=== PATIENT | female | born 1965 | race Hispanic/Latino ===

== ENCOUNTER 2017-07-25 14:45 | Emergency (ER) | payer OTHER ==
[~2017-07-25 14:45] MED LIST: Sodium Chloride 0.9% 1,000 ML BAG ONE; Sodium Chloride 0.9% 100 ML BAG ONE
--- NOTE | 2017-07-25 15:36 | RAD ---
PA AND LATERAL CHEST: Date: 07/25/17 HISTORY: Cough. COMPARISON: 01/22/14. FINDINGS: Cardiac silhouette and pulmonary vasculature within normal limits. Lungs are clear. There has been n o interval change when compared to the prior exam. IMPRESSION: No acute cardiopulmonary process. POS: [facility]
[2017-07-25] MEDS ORDERED: Albuterol Sulfate 2.5 mg/0.5 ml Neb ONE (16:00)
[2017-07-25] MEDS ORDERED: Acetaminophen/Codeine 30-300mg Tablet ONE (16:22)
[2017-07-25 16:40] LABS: Eosinophils 1 % (0-10); Hemoglobin 14.4 g/dL (12.0-16.0); Lymphocytes 17 % (21-51); MDiff Complete? YES; Mean Corpuscular HGB CONC 34.7 g/dL (32.0-36.0); Mean Corpuscular Hemoglobin 31.8 pg (27.0-31.0); Mean Corpuscular Volume 91.7 fl (81.0-99.0); Mean Platelet Volume 7.3 fL (7.4-10.4); Monocytes 6 % (0-10); Neutrophil 76 % (42-75); PLT Morphology Comment Appears Adequate; Platelet Count 213 thou/uL (130-400); RBC Distribution Width 12.5 % (11.5-14.5); Red Blood Cell (RBC) Count 4.51 mill/uL (4.20-5.40); White Blood Cell (WBC) Count 14.6 thou/uL (4.8-10.8)
[2017-07-25 16:46] LABS: ALT (SGPT) 43 U/L (8-55); AST (SGOT) 33 U/L (5-34); Albumin 3.9 g/dL (3.5-5.0); Alkaline Phosphatase 118 U/L (40-150); Anion Gap 20 mmol/L (10-20); BUN (Urea Nitrogen) 12 mg/dL (9.8-20.1); Bilirubin, Total 0.4 mg/dL (0.2-1.2); Calc. Creatinine Clearance 0 mL/min (70-130); Calcium 9.2 mg/dL (7.8-10.44); Carbon Dioxide 17 mmol/L (22-29); Chloride 101 mmol/L (98-107); Estimated GFR-MDRD 73; Glucose 254 mg/dL (70-105); Protein, Total 7.9 g/dL (6.0-8.3); Sodium 134 mmol/L (136-145)
[2017-07-25] MEDS ORDERED: Piperacillin/Tazobactam 3.375 GM VIAL ONE (17:04)
[2017-07-25 17:13] LABS: Bilirubin Negative (Negative); Blood, Urine Trace (Negative); Clarity Cloudy (Clear); Glucose, Urine (Dipstick) 500 mg/dL (Negative); Leukocyte Small (Negative); Nitrite Positive (Negative); Protein, Urine (Dipstick) 30 mg/dL (Neg-Trace); Urobilinogen 0.2 mg/dL (0.2-1.0)
[2017-07-25] MEDS ORDERED: Ondansetron HCl/PF 4 MG/2 ML Vial ONE (17:32)
[2017-07-25 17:36] LABS: Bacteria/HPF 4+ HPF (None Seen)
[2017-07-25] MEDS ORDERED: Fentanyl 100 MCG/2 ML VIAL ONE (17:58)
--- NOTE | 2017-07-25 19:46 | CT ---
CT OF CHEST PERFORMED WITHOUT CONTRAST ENHANCEMENT: 07/25/17 HISTORY: Cough. No IV access could be obtained for this exam. There is some ground glass opacities in both lung finnegan with predominantly upper lobe changes. Ther e is not a confluent pneumonic infiltrate but these changes would suggest probable pneumonitis type changes. The diffuse nature would suggest possibility of viral type process. No significant mediastinal or hilar lymphadenopathy seen. There are fatty changes of the liver. An upper pole cortical based calcification is seen within the left kidney. Cortical scarring is seen. No signs of obstruction of the visualized portions of the le ft kidney. IMPRESSION: 1. Patchy ground glass opacities in both lung finnegan, although is slightly more central in dist ribution. I would favor this representing more of an infectious process rather than pulmonary edema. 2. Fatty changes of the liver. POS: [facility]
== END 2017-07-25 18:28 | disposition short-term general hospital (02) ==
LOC: MADERS 14:45
DX: J20.9 Acute bronchitis, unspecified (principal); N39.0 Urinary tract infection, site not specified; E66.9 Obesity, unspecified; E78.5 Hyperlipidemia, unspecified; I10 Essential (primary) hypertension; K21.9 Gastro-esophageal reflux disease without esophagitis; F41.9 Anxiety disorder, unspecified; F32.9 Major depressive disorder, single episode, unspecified; F17.210 Nicotine dependence, cigarettes, uncomplicated
CPT/HCPCS: 36415; 36416; 71020; 71250; 80053; 81003; 81015; 83605; 85025; 87040; 87070; 87205; 96361; 96365; 96375; J2405; J2543; J3010; J7050; J7611; J7620

== ENCOUNTER 2017-12-11 09:53 | Outpatient (CLI) | payer MEDICARE, OTHER ==
--- NOTE | 2017-12-11 11:45 | RAD ---
LUMBAR SPINE THREE VIEWS: History: Low back pain. FINDINGS/IMPRESSION: Comparison is made with exam of 03-26-13. Degenerative changes are seen in the lumbar spine. No fracture or bony destruction is noted. There is minimal anterolisthesis of L4 over L5 vertebral bodies. POS: [facility]
--- NOTE | 2017-12-11 11:46 | RAD ---
CERVICAL SPINE THREE VIEWS: History: Chronic pain in the neck. FINDINGS: Degenerative changes are present in the lower cervical spine. No fracture, subluxation, or bony destr uction is identified. IMPRESSION: Cervical spondylosis. POS: [facility]
== END 2017-12-11 09:54 | disposition home or self-care (01) ==
LOC: MADRAD 09:53
DX: M54.5 Low back pain (principal); M54.2 Cervicalgia; M47.892 Other spondylosis, cervical region; M47.896 Other spondylosis, lumbar region
CPT/HCPCS: 72040; 72100

== ENCOUNTER 2018-01-19 09:57 | Emergency (ER) | payer MEDICARE, MEDICAID | END 2018-01-19 11:00 | disposition home or self-care (01) | LOC: MADERS 09:57 | DX: M79.672 Pain in left foot (principal); M79.671 Pain in right foot; E11.9 Type 2 diabetes mellitus without complications; E78.5 Hyperlipidemia, unspecified; F32.9 Major depressive disorder, single episode, unspecified; F41.9 Anxiety disorder, unspecified; F17.210 Nicotine dependence, cigarettes, uncomplicated; I10 Essential (primary) hypertension; K21.9 Gastro-esophageal reflux disease without esophagitis; Z87.442 Personal history of urinary calculi; Z79.4 Long term (current) use of insulin; Z79.899 Other long term (current) drug therapy | CPT/HCPCS: 99283 ==

== ENCOUNTER 2018-07-17 23:37 | Emergency (ER) | payer MEDICARE, OTHER, MEDICAID ==
[2018-07-18] MEDS ORDERED: Acetaminophen 500 MG TAB ONE (00:15)
--- NOTE | 2018-07-18 08:59 | RAD ---
RIGHT TOES 3 VIEWS: Date: 07/18/18 HISTORY: 53-year-old female with history of injury, with pain, particularly in the second toe. FINDINGS: Somewhat obliquely oriented chip-type fractures off the medial aspect of the base of the second and t hird proximal phalanges is noted. Minimal generalized degenerative changes. IMPRESSION: Essentially nondisplaced chip-type fractures off the medial base of the proximal phalanges of the sec ond and third toes. POS: [facility]
== END 2018-07-18 01:12 | disposition home or self-care (01) ==
LOC: MADERS 23:37
DX: S92.514A Nondisplaced fracture of proximal phalanx of right lesser toe(s), initial encounter for closed fracture (principal); E11.9 Type 2 diabetes mellitus without complications; I10 Essential (primary) hypertension; E78.5 Hyperlipidemia, unspecified; J44.9 Chronic obstructive pulmonary disease, unspecified; F17.210 Nicotine dependence, cigarettes, uncomplicated; Z87.442 Personal history of urinary calculi; Z79.4 Long term (current) use of insulin; Z79.899 Other long term (current) drug therapy; W19.XXXA Unspecified fall, initial encounter

== ENCOUNTER 2018-09-15 07:17 | Emergency (ER) | payer MEDICARE, OTHER, MEDICAID ==
[2018-09-15] MEDS ORDERED: predniSONE 20 MG TAB ONE (07:56)
[2018-09-15] MEDS ORDERED: HYDROcodone/Acetaminophen 10/325 mg Tablet ONE (08:02)
== END 2018-09-15 08:12 | disposition home or self-care (01) ==
LOC: MADERS 07:17
DX: M54.41 Lumbago with sciatica, right side (principal); E11.9 Type 2 diabetes mellitus without complications; Z79.4 Long term (current) use of insulin; E78.5 Hyperlipidemia, unspecified; I10 Essential (primary) hypertension; K21.9 Gastro-esophageal reflux disease without esophagitis; J44.9 Chronic obstructive pulmonary disease, unspecified; F41.9 Anxiety disorder, unspecified; F32.9 Major depressive disorder, single episode, unspecified; F17.210 Nicotine dependence, cigarettes, uncomplicated; Z79.899 Other long term (current) drug therapy; Z79.82 Long term (current) use of aspirin
CPT/HCPCS: 99283; J7506

== ENCOUNTER 2019-01-28 18:03 | Emergency (ER) | payer MEDICARE, OTHER ==
[~2019-01-28 18:03] MED LIST changes: +Iopamidol 370 76% 200 ML VIAL ONE; -Sodium Chloride 0.9% 100 ML BAG ONE
[2019-01-28] MEDS ORDERED: Acetaminophen 500 MG TAB ONE (18:40)
[2019-01-28 18:41] LABS: #Basophils 0.1 thou/uL (0.0-0.2); #Eosinphils 0.1 thou/uL (0.0-0.7); #Lymphocytes 2.8 thou/uL (1.20-3.40); #Monocytes 0.6 thou/uL (0.11-0.59); #Neutrophils 5.5 thou/uL (1.40-6.50); %Basophils 0.9 % (0.0-1.0); %Eosinophils 1.4 % (0.0-10.0); %Monocytes 6.9 % (0.0-10.0); %Neutrophils 59.7 % (42.0-75.0); Hemoglobin 13.1 g/dL (12.0-16.0); Mean Corpuscular HGB CONC 33.1 g/dL (32.0-36.0); Mean Corpuscular Hemoglobin 29.6 pg (27.0-31.0); Mean Corpuscular Volume 89.5 fL (78.0-98.0); Mean Platelet Volume 7.3 fL (7.4-10.4); Platelet Count 208 thou/uL (130-400); RBC Distribution Width 12.8 % (11.5-14.5); Red Blood Cell (RBC) Count 4.42 mill/uL (4.20-5.40); White Blood Cell (WBC) Count 9.2 thou/uL (4.8-10.8)
--- NOTE | 2019-01-28 18:43 | RAD ---
Portable frontal chest radiograph: 01/28/2019 COMPARISON: 01/22/2014 HISTORY: Chest pain FINDINGS: Mild increased linear interstitial density with no focal consolidation or alveolar edema. N o pneumothorax or pleural effusion. Heart and mediastinal contours appear within normal limits. IMPRESSION: No acute findings.
[2019-01-28 19:00] LABS: ALT (SGPT) 18 U/L (8-55); AST (SGOT) 14 U/L (5-34); Alkaline Phosphatase 132 U/L (40-150); Anion Gap 17 mmol/L (10-20); BUN (Urea Nitrogen) 16 mg/dL (9.8-20.1); Bilirubin, Total 0.4 mg/dL (0.2-1.2); CK (CPK) 62 U/L (29-168); Calc. Creatinine Clearance 0 mL/min (70-130); Calcium 9.4 mg/dL (7.8-10.44); Carbon Dioxide 20 mmol/L (22-29); Chloride 103 mmol/L (98-107); Estimated GFR-MDRD 72; Globulin 3.2 g/dL (2.4-3.5); Glucose 137 mg/dL (70-105); Lipase 35 U/L (8-78); Potassium 4.2 mmol/L (3.5-5.1); Protein, Total 7.2 g/dL (6.0-8.3); Sodium 136 mmol/L (136-145)
--- NOTE | 2019-01-28 20:27 | CT ---
CTA OF THE THORAX UTILIZING IV CONTRAST PE PROTOCOL AND 3D REFORMATTED IMAGING 01/28/19 INDICATION: Chest pain with concern for PE. COMPARISON: Prior CT of the abdomen and pelvis without contrast dated 07/27/12. FINDINGS: No central or segmental pulmonary embolus is evident. No air space consolidation, pleural effusion, or pneumothorax is demonstrated. No enlarged lymph node s are evident. There is a stable 2.2 cm left adrenal adenoma. There is stable pneumobilia within the left hepatic lo be. No acute osseous abnormality is evident. No acute osseous abnormality is evident. IMPRESSION: 1. No central or segmental pulmonary embolus. 2. Stable left adrenal adenoma. 3. Stable mild pneumobilia within the left hepatic lobe. POS: [facility]
== END 2019-01-28 22:20 | disposition home or self-care (01) ==
LOC: MADERS 18:03
DX: R07.2 Precordial pain (principal); K04.7 Periapical abscess without sinus; K02.9 Dental caries, unspecified; E11.9 Type 2 diabetes mellitus without complications; E78.5 Hyperlipidemia, unspecified; I10 Essential (primary) hypertension; K21.9 Gastro-esophageal reflux disease without esophagitis; F17.210 Nicotine dependence, cigarettes, uncomplicated; Z79.899 Other long term (current) drug therapy; Z79.82 Long term (current) use of aspirin; Z79.51 Long term (current) use of inhaled steroids
CPT/HCPCS: 36415; 71045; 71275; 80053; 82550; 83690; 84484; 85025; 93005; 94760; 96360; J7050

== ENCOUNTER 2019-02-02 12:04 | Emergency (ER) | payer MEDICARE, OTHER | END 2019-02-02 12:30 | disposition home or self-care (01) | LOC: MADERS 12:04 | DX: K59.00 Constipation, unspecified (principal); I10 Essential (primary) hypertension; E11.9 Type 2 diabetes mellitus without complications; E78.5 Hyperlipidemia, unspecified; K21.9 Gastro-esophageal reflux disease without esophagitis; F17.210 Nicotine dependence, cigarettes, uncomplicated; F41.9 Anxiety disorder, unspecified; F32.9 Major depressive disorder, single episode, unspecified; Z79.4 Long term (current) use of insulin; Z87.442 Personal history of urinary calculi; Z79.899 Other long term (current) drug therapy; Z79.82 Long term (current) use of aspirin ==

== ENCOUNTER 2019-02-02 14:10 | Emergency (ER) | payer MEDICARE, OTHER ==
--- NOTE | 2019-02-02 15:34 | RAD ---
ACUTE ABDOMINAL SERIES 02/02/19 PROVIDED CLINICAL HISTORY: Constipation. FINDINGS: Comparison chest radiograph 01/28/19. The cardiac and mediastinal silhouette is within normal limits. No focal consolidation, pleural fluid or pneumothorax apparent. Supine and upright abdominal radiographs demonstrate a nonspecific bowel gas pattern. There is no raymond dence for pneumoperitoneum. Patient respiratory motion limits evaluation. IMPRESSION: 1. No evidence for acute cardiopulmonary process. 2. Nonspecific bowel gas pattern. POS: [facility]
== END 2019-02-02 18:10 | disposition home or self-care (01) ==
LOC: MADERS 14:10
DX: K56.41 Fecal impaction (principal)
CPT/HCPCS: 74022

== ENCOUNTER 2019-03-25 09:42 | Emergency (ER) | payer MEDICARE, OTHER ==
[2019-03-25] MEDS ORDERED: Adacel (T-DAP) 0.5 ML SYRINGE ONE (11:21)
== END 2019-03-25 11:43 | disposition home or self-care (01) ==
LOC: MADERS 09:42
DX: L03.116 Cellulitis of left lower limb (principal); S81.812D Laceration without foreign body, left lower leg, subsequent encounter; E11.9 Type 2 diabetes mellitus without complications; Z79.4 Long term (current) use of insulin; E78.5 Hyperlipidemia, unspecified; I10 Essential (primary) hypertension; K21.9 Gastro-esophageal reflux disease without esophagitis; F17.210 Nicotine dependence, cigarettes, uncomplicated; F41.9 Anxiety disorder, unspecified; F32.9 Major depressive disorder, single episode, unspecified; Z79.899 Other long term (current) drug therapy; Z79.82 Long term (current) use of aspirin; Z79.84 Long term (current) use of oral hypoglycemic drugs
CPT/HCPCS: 90471; 90715

== ENCOUNTER 2019-11-01 16:59 | Emergency (ER) | payer MEDICARE, OTHER | END 2019-11-01 18:00 | disposition left against medical advice (07) | LOC: MADERS 16:59 | DX: Z53.21 Procedure and treatment not carried out due to patient leaving prior to being seen by health care provider (principal); E78.5 Hyperlipidemia, unspecified; I10 Essential (primary) hypertension; K21.9 Gastro-esophageal reflux disease without esophagitis; F41.9 Anxiety disorder, unspecified; F32.9 Major depressive disorder, single episode, unspecified; F17.210 Nicotine dependence, cigarettes, uncomplicated; Z79.51 Long term (current) use of inhaled steroids; Z79.82 Long term (current) use of aspirin; Z79.899 Other long term (current) drug therapy; Z79.84 Long term (current) use of oral hypoglycemic drugs ==

== ENCOUNTER 2020-01-06 16:26 | Emergency (ER) | payer MEDICARE, OTHER ==
[2020-01-06] MEDS ORDERED: Fentanyl 100 MCG/2 ML VIAL ONE (16:46)
[2020-01-06 17:12] LABS: Bilirubin Negative (Negative); Blood, Urine Negative (Negative); Glucose, Urine (Dipstick) Negative (Negative); Leukocyte Small (Negative); Nitrite Negative (Negative); Protein, Urine (Dipstick) Negative (Neg-Trace); Urobilinogen 0.2 mg/dL (Less than 2)
[2020-01-06 17:13] LABS: Clarity Hazy (Clear)
[2020-01-06 17:19] LABS: Bacteria/HPF Rare-Few HPF (None Seen); RBC/HPF 0-3 HPF (0-3); Squamous Epithelial 0-3 HPF (0-3); WBC/HPF 0-3 HPF (0-3)
[2020-01-06 17:45] LABS: ALT (SGPT) 18 U/L (8-55); AST (SGOT) 14 U/L (5-34); Albumin 4.3 g/dL (3.5-5.0); Alkaline Phosphatase 107 U/L (40-110); Anion Gap 17 mmol/L (10-20); BUN (Urea Nitrogen) 11 mg/dL (9.8-20.1); Bilirubin, Total 0.2 mg/dL (0.2-1.2); Calc. Creatinine Clearance 0 mL/min (70-130); Calcium 9.7 mg/dL (7.8-10.44); Carbon Dioxide 23 mmol/L (22-29); Chloride 103 mmol/L (98-107); Estimated GFR-MDRD 64; Globulin 3.1 g/dL (2.4-3.5); Glucose 91 mg/dL (70-105); Lipase 46 U/L (8-78); Potassium 4.1 mmol/L (3.5-5.1); Protein, Total 7.4 g/dL (6.0-8.3); Sodium 139 mmol/L (136-145)
[2020-01-06 17:49] LABS: #Basophils 0.1 thou/uL (0.0-0.2); #Eosinphils 0.1 thou/uL (0.0-0.7); #Lymphocytes 3.8 thou/uL (1.20-3.40); #Monocytes 0.4 thou/uL (0.11-0.59); #Neutrophils 3.7 thou/uL (1.40-6.50); %Basophils 1.3 % (0.0-1.0); %Eosinophils 1.1 % (0.0-10.0); %Monocytes 4.8 % (0.0-10.0); %Neutrophils 45.8 % (42.0-75.0); Hemoglobin 12.8 g/dL (12.0-16.0); Mean Corpuscular Hemoglobin 31.3 pg (27.0-31.0); Mean Corpuscular Volume 91.9 fL (78.0-98.0); Mean Platelet Volume 8.2 fL (7.4-10.4); Platelet Count 245 thou/uL (130-400); RBC Distribution Width 12.8 % (11.5-14.5); White Blood Cell (WBC) Count 8.1 thou/uL (4.8-10.8)
--- NOTE | 2020-01-06 18:12 | CT ---
CT ABDOMEN NONCONTRAST CT PELVIS NONCONTRAST: (Urolithiasis protocol) DATE: 01/06/2020 HISTORY: 54-year-old female with right flank pain COMPARISON: 08/02/2014 TECHNIQUE: IV injection of iodinated contrast media: None Oral contrast media: None FINDINGS: Other than for urolithiasis, the lack of IV and oral contrast limits the evaluation. Lung bases are grossly clear. No pleural effusion, ascites, pneumoperitoneum, small bowel dilation, o r colonic diverticulitis. Normal appendix. Cholecystectomy clips in gallbladder fossa. Absent uterus. Within the limitations of a noncontrast scan, no gross abnormality identified involving liver, spleen , right adrenal, pancreas, or urinary bladder. No abdominal aortic aneurysm. Approximately 1.7 cm left adrenal adenoma with density of 4 Hounsfield units is unchanged. Numerous renal cortical indentations throughout both renal surfaces, some of which probably represent lobulations, but others, especially throughout the left renal upper, mid, and lower poles, represent multiple scars from previous insults. There is a 1.3 x 0.9 x 1.2 cm focal calcification at left renal upper pole parenchyma, partially expo sed by overlying moderately large parenchymal cortical defect. It shows little or no increase in size. Because of its relationship with the defect, this could be a dystrophic calcification rather th an nephrolithiasis. Numerous tiny bilateral renal calculi are demonstrated, more numerous than on prior study, on the ord er of 1 to 3 mm in size each. No hydronephrosis. No ureteral or bladder calculus. Lumbar vertebral body heights are maintained. IMPRESSION: 1) no evidence of obstructive uropathy. 2) bilateral nephrolithiasis consisting of numerous tiny bilateral renal calculi, a few millimeters i n size each. 3) moderate size 13 x 9 x 12 mm calcification at left renal upper pole, essentially unchanged. Dystro phic calcification versus nephrolithiasis. 4) numerous left renal cortical scars from prior insults. 5) status post cholecystectomy and hysterectomy.
== END 2020-01-06 18:25 | disposition home or self-care (01) ==
LOC: MADERS 16:26
DX: M54.5 Low back pain (principal); R10.9 Unspecified abdominal pain; E11.9 Type 2 diabetes mellitus without complications; E78.5 Hyperlipidemia, unspecified; I10 Essential (primary) hypertension; J44.9 Chronic obstructive pulmonary disease, unspecified; K21.9 Gastro-esophageal reflux disease without esophagitis; F17.210 Nicotine dependence, cigarettes, uncomplicated; Z87.442 Personal history of urinary calculi; Z79.82 Long term (current) use of aspirin; Z79.899 Other long term (current) drug therapy
CPT/HCPCS: 74176; 80053; 81003; 81015; 83690; 85025; 94760; 96374; J3010

== ENCOUNTER 2021-02-26 13:04 | Emergency (ER) | payer MEDICARE, MEDICAID | END 2021-02-26 13:40 | disposition home or self-care (01) | LOC: MADERS 13:04 | DX: M62.838 Other muscle spasm (principal); I10 Essential (primary) hypertension; E11.9 Type 2 diabetes mellitus without complications; E78.5 Hyperlipidemia, unspecified; K21.9 Gastro-esophageal reflux disease without esophagitis; J44.9 Chronic obstructive pulmonary disease, unspecified; F17.210 Nicotine dependence, cigarettes, uncomplicated; Z79.82 Long term (current) use of aspirin; Z79.899 Other long term (current) drug therapy; W10.9XXA Fall (on) (from) unspecified stairs and steps, initial encounter | CPT/HCPCS: 93005; 99406 ==